=== PATIENT | male | born 1960 | race Caucasian/White ===

== ENCOUNTER 2017-09-18 07:29 | Emergency (ER) | payer MEDICAID ==
[~2017-09-18] VITALS: Ht 177.8 cm; Wt 77.1 kg
[2017-09-18 07:29] VITALS: BP 160/98
[2017-09-18] MEDS ORDERED: FLUORESCEIN OPHTHALMIC 1 MG STRIP ONE (07:37)
[2017-09-18] MEDS ORDERED: PROPARACAINE OPHTH 0.5%, 15ML ONE (07:37)
== END 2017-09-18 08:32 | disposition home or self-care (01) ==
LOC: ED 08:26
DX: H18.822 Corneal disorder due to contact lens, left eye (principal)
CPT/HCPCS: 99283

== ENCOUNTER 2019-06-15 19:40 | Emergency (ER) | payer MEDICAID, OTHER ==
[~2019-06-15] VITALS: Ht 177.8 cm; Wt 70.0 kg
--- NOTE | 2019-06-15 19:52 | NUR ---
PT BIBA FOR RIGHT INGUINAL HERNIA THAT HE IS UNABLE TO REDUCE. PT STATES HX ON SMALL HERNIA, BUT HAD N/V TODAY AND IT GOT LARGER AND PAINFUL. LARGE BULGE TO RIGH INGUINAL AREA. PT CONNECTED TO MONITORS. VSS. PIV ESTABLISHED AND 4MG ZOFRAN ADMINISTERED. AWAITING EDMD ASSESSMENT.
[2019-06-15] MEDS ORDERED: HYDROmorphone 1 MG/ML, 1ML INJ ONE (20:25)
[2019-06-15] MEDS: HYDROmorphone 2 MG/ML, 1ML IVPush PRN ×2 (20:29→21:20)
[2019-06-15] MEDS ORDERED: SODIUM CHLORIDE FLUSH 10ML SYR IVF ONE (20:30)
--- NOTE | 2019-06-15 20:32 | NUR ---
DR. CROOK TO BS. ORDERS RECEIVED. VSS. PT MEDICATED PER AUG. PT PLACED ON 2LNC PREVENTATIVELY AFTER DILAUDID ADMINISTRATION. PT STATES DECREASE IN PAIN AFTER MEDICATION ADMINISTRATION. NO NEEDS EXPRESSED. AWAITING FURTHRE ORDERS.
--- NOTE | 2019-06-15 21:29 | NUR ---
upon entering room, pt and family verbally aggressive toward this rn. pt and family continuously asking why pt hasn't received pain medications yet, that they were suppoed to have been given 15 minutes ago, and that the doctor "said he needed more." pt and family kept talking over this rn and this rn was unable to speak. finally, this rn stated, "i'll finish talking later" and left to get pain medication. pt then medicated per aug. vss. tolerated well. per Dr. Gandara, will try to reduce hernia again. if unsuccessful, will consult surgery.
--- NOTE | 2019-06-15 22:11 | NUR ---
DR. CROOK ABLE TO EDUCE HERNIA. PER EDMD, PT IS TO LIE FLAT FOR NOW. STAFF WILL ATTEMPT TO AMBULATE PT AT 2230. IF HERNIA STAYS REDUCED, PT MAY DC. NOTIFY EDMD IF ANY OTHER RESULT FOR REASSESSMENT.
--- NOTE | 2019-06-15 22:16 | NUR ---
REPORT RECEIVED FROM STEVE KIM.
[2019-06-15 22:29] VITALS: BP 137/87
--- NOTE | 2019-06-15 22:31 | NUR ---
PT RESTING ON GURNEY WITH FAMILY AT BS WHILE FULLY SUPINE. PT UPDATED ON POC. MONITORING IN PLACE, ALL SAFETY MEASURES IN PLACE.
--- NOTE | 2019-06-15 22:52 | NUR ---
PT ROAD TEST SUCCESSFUL PT ABLE TO AMBULATE WITH STEADY GAIT. NO HERNIATION NOTED. PT REPORTS NO DISCOMFORT WITH AMBULATION.
== END 2019-06-15 23:23 | disposition home or self-care (01) ==
LOC: ED 23:04
DX: K40.91 Unilateral inguinal hernia, without obstruction or gangrene, recurrent (principal); R11.10 Vomiting, unspecified; Z72.89 Other problems related to lifestyle
CPT/HCPCS: 96374; 96376; 99284; J1170

== ENCOUNTER 2019-07-01 08:14 | Outpatient (CLI) | payer OTHER ==
[2019-07-01 09:25] LABS: BASOPHILS # (AUTO) 0.02 x10^3/uL (0-0.1); BASOPHILS % (AUTO) 0 % (0-1); EOSINOPHILS # (AUTO) 0.04 x10^3/uL (0-0.4); EOSINOPHILS % (AUTO) 1 % (1-7); LYMPHOCYTES # (AUTO) 1.49 x10^3/uL (1-3.4); LYMPHOCYTES % (AUTO) 21 % (22-44); MD NO; MEAN CORPUSCULAR HEMOGLOBIN 31.5 pg (27.5-34.5); MEAN CORPUSCULAR HGB CONC 33.4 g/dL (33.2-36.2); MEAN PLATELET VOLUME 7.2 fL (7.4-10.4); MONOCYTES # (AUTO) 0.62 x10^3/uL (0.2-0.8); MONOCYTES % (AUTO) 9 % (2-9); NEUTROPHILS # (AUTO) 5.03 x10^3/uL (1.8-6.8); NEUTROPHILS % (AUTO) 70 % (42-75); PLATELET COUNT 456 x10^3/uL (130-400); RED BLOOD COUNT 4.77 x10^6/uL (4.38-5.82); RED CELL DISTRIBUTION WIDTH 13.8 % (9.4-14.8)
[2019-07-01 09:31] LABS: ALANINE AMINOTRANSFERASE 17 U/L (12-78); ALBUMIN 3.8 g/dL (3.4-5.0); ANION GAP 6 mmol/L (5-15); CALCIUM 8.5 mg/dL (8.5-10.1); CHLORIDE 106 mmol/L (98-107); CREATININE 0.93 mg/dL (0.7-1.3)
[2019-07-01 09:34] LABS: ALKALINE PHOSPHATASE 47 U/L (45-117); BILIRUBIN,TOTAL 0.5 mg/dL (0.2-1.0); TOTAL PROTEIN 7.5 g/dL (6.4-8.2)
== END 2019-07-01 23:59 | disposition home or self-care (01) ==
LOC: STAR 08:14
PROVIDERS: ATTEND Surgery
DX: Z01.818 Encounter for other preprocedural examination (principal)
CPT/HCPCS: 36415; 71046; 80053; 85025; 93005